=== PATIENT | male | born 1960 | race African-American/Black ===

== ENCOUNTER 2016-09-16 10:27 | Emergency (ER) | payer SELFPAY ==
[~2016-09-16] VITALS: Ht 165.1 cm; Wt 70.0 kg
[2016-09-16] MEDS ORDERED: PIPERACILLIN/TAZ 3.375G PREMIX 50 ML IV ONE (12:00)
[2016-09-16] MEDS ORDERED: VANCOMYCIN 1 G PREMIX 200 ML IV SCH (12:00)
[2016-09-16] MEDS ORDERED: SODIUM CHLORIDE 0.9% 1,000 ML IV ONE (12:02)
[2016-09-16 12:56] LABS: HEMATOCRIT. 43.5 % (42.0-52.0); HEMOGLOBIN. 14.9 g/dL (14.0-18.0); MEAN CORPUSCULAR HEMOGLOBIN 31.8 pg (28.0-32.0); MEAN CORPUSCULAR HGB CONC 34.3 g/dL (31.0-37.0); MEAN CORPUSCULAR VOLUME 92.8 fL (80.0-94.0); PLATELET 182 x1000/uL (130-400); RED BLOOD CELL COUNT 4.69 mill/uL (4.7-6.1); WHITE BLOOD COUNT 17.2 x1000/uL (4.5-11.0)
[2016-09-16 13:03] LABS: INR 0.9; PROTHROMBIN TIME 9.5 sec
[2016-09-16 13:04] LABS: DIFFERENTIAL COMMENT 1
[2016-09-16 13:10] LABS: ALBUMIN 2.9 g/dL (3.4-5.0); ANION GAP 16; CALCIUM 9.7 mg/dL (8.5-10.1); CARBON DIOXIDE 25 mEq/L (21-32); CHLORIDE 98 mEq/L (98-107); INDEX HEMOLYSI 1 (1-3); INDEX ICTERIC 1 (1-4); INDEX LIPEMIC 1 (1-3)
[2016-09-16 13:13] LABS: ALANINE AMINOTRANSFERASE 24 IU/L (13-61); UREA NITROGEN BLOOD 27 mg/dL (7-21); eGFR 51 mL/min (>60)
[2016-09-16 13:39] LABS: PLATELET ESTIMATE NORMAL
[2016-09-16] MEDS ORDERED: ACETAMINOPHEN 500MG TABLET PO ONE (15:45)
[2016-09-16] MEDS ORDERED: BENAZEPRIL 20MG TABLET PO ONE (19:45)
[2016-09-16] MEDS ORDERED: KETOROLAC 60MG/2ML VIAL IM ONE (21:00)
[2016-09-17] MEDS ORDERED: VANCOMYCIN 1 G PREMIX 200 ML IV ONE (02:30)
[2016-09-17 10:22] VITALS: BP 150/92
== END 2016-09-17 11:04 | disposition short-term general hospital (02) ==
LOC: ER 12:26
DX: H05.012 Cellulitis of left orbit (principal); D72.829 Elevated white blood cell count, unspecified; R79.1 Abnormal coagulation profile; Z87.891 Personal history of nicotine dependence
CPT/HCPCS: 36415; 70486; 71010; 80053; 83605; 85025; 85610; 93005; 96365; 96366; 96367; 96372; 96374; 99285; J1885; J2543; J3370; J7030; Z7610